=== PATIENT | female | born 1930 | race Caucasian/White ===

== ENCOUNTER 2016-05-09 09:53 | Inpatient (IN) | payer MEDICARE ==
[~2016-05-09] VITALS: Ht 162.6 cm; Wt 62.9 kg
[2016-05-09 12:03] LABS: APPEARANCE HAZY (CLEAR); BILIRUBIN NEGATIVE (NEGATIVE); COLOR YELLOW (YELLOW); GLUCOSE NEGATIVE (NEGATIVE); KETONE NEGATIVE (NEGATIVE); LEUKOCYTE ESTERASE NEGATIVE (NEGATIVE); NITRITE NEGATIVE (NEGATIVE); PROTEIN NEGATIVE (NEGATIVE); SPECIFIC GRAVITY 1.025 (1.005-1.020); UROBILINOGEN NORMAL (NORMAL)
[2016-05-09 12:05] LABS: BACTERIA MODERATE /hpf (NONE SEEN); EPITHELIAL CELLS 0-5 /hpf (0-5); MUCUS <1+ /lpf (NONE SEEN); RED CELLS - URINE 0-5 /hpf (0-5); WHITE CELLS - URINE 0-5 /hpf (0-5)
[2016-05-09 12:40] LABS: BASOPHILS 0.1 % (0.0-2.0); EOSINOPHILS 0 % (0-7); HEMATOCRIT 38.9 % (36.0-48.0); HEMOGLOBIN 11.3 g/dL (12-16); IMMATURE GRANULOCYTES 0.2 % (0-5); LYMPHOCYTES 9.2 % (15-50); MCH 27.8 pg (26.0-34.0); MCV 95.8 fL (80.0-100.0); MEAN PLATELET VOLUME 10.6 fL (7.4-10.4); MONOCYTES 6.5 % (2-11); PLATELET COUNT 277 10x3/uL (130-400); RBC 4.06 10x6/uL (4.00-5.40); RDW 14.9 % (11.5-14.5); WBC 11.5 10x3/uL (4.8-10.8)
[2016-05-09 12:46] LABS: ALBUMIN 2.2 g/dL (3.4-5.0); ANION GAP 14.8 mmol/L (8-16); BILIRUBIN - TOTAL 0.32 mg/dL (0.2-1.3); CALCIUM 9.8 mg/dL (8.5-10.1); CARBON DIOXIDE 36.8 mmol/L (21.0-32.0); CREATININE - SERUM 1.9 mg/dL (0.6-1.3); POTASSIUM - SERUM 5.6 mmol/L (3.5-5.1)
[2016-05-09 13:00] LABS: TROPONIN-I 0.25 ng/mL (0.000-0.060)
[2016-05-09 15:55] VITALS: BP 133/75; BMI 22.5
--- NOTE | 2016-05-09 16:10 | NUR ---
1535- PT TO ROOM VIA STRETCHER FROM ED. [facility] CATH INTACT. ON 02 AT 2L. SALINE LOCK TO RIGHT HAND. SKIN ASSESSMENT FOLLOWS. SCAB SEEN TO INNER LEFT ABOVE ANLKE, MEASUREMENTS 5CM X 1CM WITH DRY, SCALY SKIN. SCAB SEEN TO RIGHT INNER ANKLE. MEASUREMENTS ARE 3.5CM X 1CM WITH DRY, SCALY SKIN. MULTLIPLE (5) SCABS SEEN TO RIGHT OUTER LEG. SKIN IS RED, DRY, HARD, AND SCALY THATS COLD TO TOUCH. BILATERAL FOREARMS HAVE REDDENED AREA WITH SKIN TEAR THAT APPEARS TO BE HEALING. BELOW FOURTH DIGIT OF LEFT FOOT SMALL SCAB SEEN WITH MEASUREMENTS OF 0.5CM X 0.5CM. BRUISING SEEN TO LEFT GREAT TOE AREA. SMALL SCAB SEEN TO RIGHT GREAT TOE AREA WITH MEASUREMENTS OF 0.5CM X 0.5CM. SMALL SCAB SEEN TO RIGHT OUTER PINKY AREA WITH MEASUREMENTS OF 0.5CM X 0.5CM. EXCORIATION SEEN TO BUTTOCK AREA WITH SCRATCHES, MEPELIX SACCRUM APPLIED AND DATED. WOUND CARE NURSE IS AT BEDSIDE WHILE ASSESSING SKIN.
[2016-05-09 16:43] VITALS: BP 133/75
[2016-05-09 18:42] LABS: % SATURATION 7 % (15-55); IRON 20 ug/dl (35-150); TOTAL IRON BIND CAPACITY 279 ug/dl (260-445); UNSAT IRON BIND CAPACITY 259 ug/dl (150-375)
--- NOTE | 2016-05-09 18:52 | NUR ---
PT LAYING IN BED VISITING WITH FAMILY MEMBERS WHO ARE AT BEDSIDE. NO NEED AT THIS TIME. WILL CONTINUE TO MONITOR.
--- NOTE | 2016-05-09 18:58 | NUR ---
ON MONITOR SHOWING SR, HR 86.
[2016-05-09 21:00] VITALS: BP 117/47
[2016-05-10 00:42] VITALS: BP 116/49
--- NOTE | 2016-05-10 04:59 | NUR ---
PT RESTING WITHOUT C/O OR DISTRESS NOTED. CALL LIGHT WITHIN REACH. WILL CONT TO MONITOR.
--- NOTE | 2016-05-10 07:05 | NUR ---
RECEIVED REPORT. ASSUMED CARE OF PATIENT. CALL LIGHT WITHIN REACH. RESP EVEN AND UNLABORED. NO DISTRESS. DENIES PAIN.
[2016-05-10 07:18] VITALS: BP 154/73
[2016-05-10 07:26] VITALS: BP 154/73
[2016-05-10 07:26] LABS: BASOPHILS 0 % (0.0-2.0); EOSINOPHILS 0.6 % (0-7); HEMATOCRIT 37.9 % (36.0-48.0); HEMOGLOBIN 11.1 g/dL (12-16); IMMATURE GRANULOCYTES 0.1 % (0-5); LYMPHOCYTES 12.2 % (15-50); MCH 27.9 pg (26.0-34.0); MCHC 29.3 g/dL (31.0-37.0); MCV 95.2 fL (80.0-100.0); MEAN PLATELET VOLUME 10.4 fL (7.4-10.4); MONOCYTES 7.1 % (2-11); PLATELET COUNT 278 10x3/uL (130-400); RBC 3.98 10x6/uL (4.00-5.40)
[2016-05-10 07:34] LABS: CALCIUM 8.7 mg/dL (8.5-10.1)
[2016-05-10 07:35] LABS: ANION GAP 2.2 mmol/L (8-16); CREATININE - SERUM 1.2 mg/dL (0.6-1.3)
[2016-05-10 07:36] LABS: CARBON DIOXIDE 43.5 mmol/L (21.0-32.0); POTASSIUM - SERUM 2.7 mmol/L (3.5-5.1)
--- NOTE | 2016-05-10 10:05 | NUR ---
K+ RIDER # 2 HUNG AT THIS TIME. FAMILY AT BEDSIDE. ULTRASOUND AT BEDSIDE. NO DISTRESS. CALL LIGHT WITHIN REACH.
[2016-05-10 11:30] VITALS: BP 123/55
[2016-05-10 13:06] VITALS: Ht 162.6 cm; Wt 62.9 kg
[2016-05-10 15:21] VITALS: BP 117/48
[2016-05-10 15:32] LABS: CALCIUM 8.8 mg/dL (8.5-10.1); CREATININE - SERUM 1.2 mg/dL (0.6-1.3)
[2016-05-10 15:41] LABS: ANION GAP 1.6 mmol/L (8-16); POTASSIUM - SERUM 4.2 mmol/L (3.5-5.1)
[2016-05-10 15:42] LABS: CARBON DIOXIDE 43.6 mmol/L (21.0-32.0)
--- NOTE | 2016-05-10 18:34 | NUR ---
MEDICATED FOR CHEST PAIN AT THIS TIME PER 1 TIME ORDER FROM . DR. MORAELZ PAGED FOR FUTURE ORDERS. PATIENT STATES CHEST PAIN IS BETTER. FAMILY AT BEDSIDE. CALL LIGHT WITHIN REACH. VS STABLE. SR ON TELE.
--- NOTE | 2016-05-10 19:10 | NUR ---
SPOKE TO AND RECEIVED NEW ORDERS FOR PLAVIX AND PRN MORPHINE. FAMILY AT BEDSIDE AT THIS TIME. PATIENT REMAIN SR ON TELE. NO CHEST PAIN AT THIS TIME.
--- NOTE | 2016-05-10 20:28 | NUR ---
RESTING IN BED. PREVIOUSLY GIVEN MORPHINE BY DAY SHIFT STAFF. OBTUNDED, VITAL SIGNS STABLE RESPONDS APPROPRIATELY TO STERNAL RUB. UNABLE TO TAKE PO MEDICATIONS AT THIS TIME. FAMILY STATED THAT IF SHE WAKES UP THEY WILL INFORM STAFF SO THAT SHE CAN TAKE CLOPIDOGREL
[2016-05-10 20:30] VITALS: BP 119/52
[2016-05-11 00:10] VITALS: BP 119/44
--- NOTE | 2016-05-11 02:22 | NUR ---
PT AROUSES TO VERBAL STIMULI. ANSWERS QUESTIONS APPROPRIATELY, LETHARGIC. SLOW TO RESPOND. ATTEMPTED TO ADMINISTER PLAVIX AGAIN. PT STATED THAT SHE WOULD TRY TO TAKE TABLET. UNABLE TO OPEN MOUTH ENOUGH TO PLACE TABLET. NODICATION NOT ADMINISTERED FOR FEAR OF ASPIRATION/CHOCKING HAZARD
--- NOTE | 2016-05-11 02:25 | NUR ---
PT LAYING IN BED NO DISTRESS OBSERVED BED LOW AND LOCKED CALL LIGHT IN REACH WILL MONITOR
[2016-05-11 04:20] VITALS: BP 126/52
--- NOTE | 2016-05-11 06:30 | NUR ---
DISCUSSED WITH PT AND FAMILY MEMBER AT [facility] ABOUT BEING NPO FOR POSSIBLE HEART CATH PENDING DISCUSSION WITH DR MORALEZ, EXPLAINED THAT MORNING PROTONIX WOULD BE HELD
--- NOTE | 2016-05-11 07:00 | NUR ---
RECEIVED REPORT. ASSUMED CARE OF PATIENT. RESTING WITH EYES CLOSED, EASILY AROUSED. RESP EVEN AND UNLABORED. FAMILY AT BEDSIDE. DENIES CHEST PAIN AT THIS TIME. FLUIDS INFUSING ORDERED. CALL LIGHT WITHIN REACH. NO DISTRESS.
[2016-05-11 07:35] VITALS: BP 122/53
[2016-05-11 08:00] VITALS: BP 89/36
[2016-05-11 08:54] LABS: BASOPHILS 0.1 % (0.0-2.0); EOSINOPHILS 0.8 % (0-7); HEMATOCRIT 39.3 % (36.0-48.0); HEMOGLOBIN 11.2 g/dL (12-16); IMMATURE GRANULOCYTES 0.1 % (0-5); MCH 27.8 pg (26.0-34.0); MCHC 28.5 g/dL (31.0-37.0); MEAN PLATELET VOLUME 10.7 fL (7.4-10.4); PLATELET COUNT 225 10x3/uL (130-400); RBC 4.03 10x6/uL (4.00-5.40); WBC 9.2 10x3/uL (4.8-10.8)
[2016-05-11 09:05] LABS: MCV 97.5 fL (80.0-100.0)
[2016-05-11 09:13] LABS: CALCIUM 9.4 mg/dL (8.5-10.1); CARBON DIOXIDE 39.3 mmol/L (21.0-32.0); CREATININE - SERUM 1.3 mg/dL (0.6-1.3); POTASSIUM - SERUM 4.3 mmol/L (3.5-5.1)
--- NOTE | 2016-05-11 10:41 | NUR ---
CONTINUING TO WAIT ON MUCOMYST ORAL FROM PHARMACY.
--- NOTE | 2016-05-11 10:46 | NUR ---
PATIENT PLACED IN TEMPORARY PRECAUTIONARY ISOLATION FOR STAFF AUREUS TO WOUNDS ON LEGS THAT WERE CULTURED. 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
[2016-05-11 11:20] VITALS: BP 101/49
--- NOTE | 2016-05-11 12:30 | NUR ---
MEDICATED LOTION APPLIED ORDERED TO BILATERAL LOWER EXTREMITIES. NO DISTRESS. FAMILY AT BEDSIDE.
[2016-05-11 15:28] VITALS: BP 105/42
--- NOTE | 2016-05-11 15:30 | NUR ---
RESTING IN BED WITH EYE CLOSED. EASILY AROUSED. RESP EVEN AND UNLABORED. NO DISTRESS. CALL LIGHT WITHIN REACH.
--- NOTE | 2016-05-11 18:38 | NUR ---
PATIENT SITTING IN BED AT 30 DEGREE ANGLE. GRAND DAUGHTER AT BEDSIDE. PATIENT GRAND DAUGHTER STATES THAT PATIENT IS COMPLAINING OF HAVING HARD TIME BREATHING. PATIENT ASSESSED, RESP EVEN AND UNLABORED, RATE 18, O2 SATURATION 94% ON O2 AT 2L. PATIENT DENIES CHEST PAIN OR DISCOMFORT. NO NASAL FLARRING, CAPILLARY REFIL <3 SECS. SAT PATIENT UP IN BED AND PATIENT STATES THAT SHE FEELS BETTER. GRAND DAUGHTER REMAINS AT BEDSIDE.
--- NOTE | 2016-05-11 19:32 | NUR ---
MORPHINE 2MG IV ADM AT THIS TIME RT WRIST IV SITE WITH NO R/S NOTED AT SITE GRANDDAUGHTER AT BEDSIDE FOR NIGHT. C/L IN REACH. IN ISOLATION FOR POSIBLE CDIFF. CONTINUE TO MONITOR.
[2016-05-12 06:21] LABS: BASOPHILS 0 % (0.0-2.0); EOSINOPHILS 3.1 % (0-7); HEMATOCRIT 35.9 % (36.0-48.0); HEMOGLOBIN 10.4 g/dL (12-16); IMMATURE GRANULOCYTES 0.2 % (0-5); LYMPHOCYTES 17.4 % (15-50); MCH 27.8 pg (26.0-34.0); MEAN PLATELET VOLUME 11.1 fL (7.4-10.4); MONOCYTES 10.4 % (2-11); NEUTROPHILS 68.9 % (40-80); PLATELET COUNT 219 10x3/uL (130-400); RBC 3.74 10x6/uL (4.00-5.40); RDW 14.5 % (11.5-14.5)
[2016-05-12 06:53] LABS: ANION GAP 7.8 mmol/L (8-16); CARBON DIOXIDE 36.7 mmol/L (21.0-32.0); CREATININE - SERUM 1.2 mg/dL (0.6-1.3); POTASSIUM - SERUM 4.5 mmol/L (3.5-5.1)
--- NOTE | 2016-05-12 07:30 | NUR ---
AM ROUNDING- PT LAYING IN BED ON BACK WITH EYES CLOSED SLEEPING. FAMILY MEMBER AT BEDSIDE. ON MONITOR SHOWING SR, HR 69. IN CONTACT ISOLATION FOR FOR C.DIFF. NO IV AT CURRENT TIME. PER REPORT FROM DANCE THERAPIST NURSE SHAMIKA, PTS IV CAME OUT THIS AM AND THEY COULDN'T STICK HER AGAIN. MOONEY CATHETER SEEN WITH YELLOW URINE. PER REPORT FROM SHAMIKA, RN PT IS ALERT AND ORIENTED BUT CONFUSED AT TIMES. ON 02 VIA NC AT 2L. NO NEED AT CURRENT TIME. WILL CONTINUE TO MONITOR.
[2016-05-12 08:45] VITALS: BP 127/55
--- NOTE | 2016-05-12 10:12 | NUR ---
0900- MILI CHAVEZ RN (VASCULAR ACCESS NURSE) STUCK PTS TWICE WITH TWO ATTEMPTS AT IV ACCESS. MILI WAS UNSUCCESSFUL. STATED SHE WOULD BE BACK TO TRY AGAIN. 0945- MILI CHAVEZ RN (VASCULAR ACCESS NURSE) STUCK PT WITH 22G TO RIGHT UPPER ARM X 1 STICK. TOLERATED WELL. WILL CONTINUE TO MONITOR.
--- NOTE | 2016-05-12 10:46 | NUR ---
Patient Name: LENA MOJICA Admission Status: ER Accout number: [id number] Admission Date: 05-09-2016 : 1930 Admission Diagnosis: Attending: SARAH Current LOS: 3 Anticipated DC Date: 05-12-2016 Planned Disposition: Home Primary Insurance: MEDICARE A & B Discharge Planning Comments: * Is the patient Alert and Oriented? Yes 0 * How many steps to enter\\exit or inside your home? 5 0 * PCP DR. TORRES - VIKTORIA HARDWICK 0 * Pharmacy [facility] 0 * Preadmission Environment Home Alone 0 * ADLs Partial Dependent 0 * Partial ADLs (Assistance needed) Bathing 0 * Equipment Other Walker 0 * Other Equipment [facility] - MEDICAL EQUIPMENT PROVIDER 0 * List name and contact numbers for known caregivers / representatives who currently or will assist patient after discharge: DANUTA MADSEN, DAUGHTER, 0 * Community resources currently utilized Meals on Wheels Other Private Duty Care 0 * Please name any agencies selected above. [employer], 1 DAY PER WEEK, 3 HOURS PER DAY (BATH, HOUSEKEEPING) [facility] 0 * Additional services required to return to the preadmission environment? Yes * Can the patient safely return to the preadmission environment? Yes 0 * Has this patient been hospitalized within the prior 30 days at any hospital? No 0 CM MET WITH PT, DAUGHTER AND DAUGHTER IN LAW IN ROOM TO DISCUSS DISCHARGE PLANNING AND NEEDS. PT'S DAUGHTER REPORTS PT LIVING AT HOME ALONE AND PARTIALLY DEPENDENT ON HER AIDE FROM ARE[employer] THAT ASSISTS WITH BATHING AND HOUSEKEEPING TIME ALLOWS. FAMILY IS "IN AND OUT" OF THE HOME FREQUENTLY TO CHECK ON PT. PT IS OTHERWISE INDEPENDENT IN CARE, DOES NOT USE STOVE TO COOK, BUT DOES USE HER MICROWAVE OVEN. PT HAS HOUSECALLS ALSO. PT IS NOT VERY COMPLIANT WITH HER MEDICATIONS AND FAMILY IS TRYING TO GET PT TO BE MORE COMPLAINT. CM DISCUSSED AVAILABILITY OF HOME HEALTH, REHAB SERVICES AND MEDICAL EQUIPMENT. PT WILL NOT CONSIDER GOING TO LONG TERM HOME FOR REHAB OR OTHER PLACEMENTS. PT'S DAUGTHER WOULD LIKE PT TO HAVE HOME HEALTH WITH [facility] AT DISCHARGE FOR PHYSICAL THERAPY. CM EXPRESSED CONCERN THAT PT IS NOT BED MOBILE ON HER OWN AND PT WELL FAMILY CONTINUE TO REPORT PT IS GOING HOME. PT'S DAUGTHER REPORTS THAT PT WILL GET BETTER AND THEN GO HOME WITH HOME HEALTH. DAUGHTER REPORTS FAMILY WILL PICK PT UP FOR DISCHARGE HOME. PT'S FAMILY WOULD LIKE PT TO HAVE [facility] HOME HEALTH FOR PHYSICAL THERAPY AT HOME. CM TO ARRANGE HOME HEALTH SERVICES IF PHYSICIAN AGREES AND WITH PHYSICIAN ORDERS. Senior Production Supervisor: Duke Hernadez
--- NOTE | 2016-05-12 12:49 | NUR ---
1050- PT UP TO CHAIR WITH PHYSICAL THERAPY.
[2016-05-12 13:14] VITALS: BP 101/45
--- NOTE | 2016-05-12 14:56 | NUR ---
Rehab Prescreening Consult recieved and the chart has been reviewed. His PT notes indicate he is weak and SOB while out of bed. Rehab needs a more thorough note from physical therapy to determine what his deficits are and whether or not he will be able to tolerate 3 hrs of therapy daily 5 days a week. Rehab will follow his progress as he has not PT note today. Sari Marsh RN Clinical Liaison, Rehab
--- NOTE | 2016-05-12 15:38 | NUR ---
MEPELIX CHANGED TO COCCYX AREA AND DATED. DISCOLORATION (BRUISE)?, SEEN TO THIS AREA. THIS WAS NOT OBSERVED ON THURSDAY DURING MY ADMISSION. WILL CONTINUE TO MONITOR.
--- NOTE | 2016-05-12 16:26 | NUR ---
WOUND CARE; APPLIED BILATERAL UNNA BOOTS PER DR. WILEY'S ORDERS. INSTRUCTED PT/FAMILY ON PURPOSE OF COMPRESSION BOOTS. SPOKE WITH PHYSICAL THERAPY ABOUT ADDING ANKLE PUMPS (POINT AND FLEX). PT TOLERATED WELL. WILL CONTINUE TO MONITOR.
[2016-05-12 17:04] VITALS: BP 106/44
--- NOTE | 2016-05-12 18:16 | NUR ---
PT LAYING IN BED ON BACK WITH EYES OPEN. FAMILY MEMBERS ARE AT BEDSIDE. NO NEED AT CURRENT TIME. WILL CONTINUE TO MONITOR.
[2016-05-12 19:09] LABS: SPE - ALBUMIN 2.4 g/dL (2.9-4.4); SPE - ALPHA-1 GLOBULIN 0.3 g/dL (0.0-0.4); SPE - ALPHA-2 GLOBULIN 0.8 g/dL (0.4-1.0); SPE - BETA GLOBULIN 0.8 g/dL (0.7-1.3); SPE - GAMMA GLOBULIN 0.5 g/dL (0.4-1.8); SPE - M-SPIKE Not Observed g/dL (Not Observed); SPE - TOTAL PROTEIN 4.9 g/dL (6.0-8.5)
--- NOTE | 2016-05-12 20:37 | NUR ---
PT LYING IN BED, AWAKE, ALERT, ORIENTED, FAMILY AT BEDSIDE. PT IS PAIUTE-SHOSHONE, BUT DENIES ANY NEEDS AT THIS TIME. CONTINUE TO MONITOR CLOSELY. BED LOW, HOB 30 DEGREES, RIGHT ARM ELEVATED ON PILLOW R/T EDEMA, SIDE RAILS X 2, BED ALARM ON.
[2016-05-12 21:47] VITALS: BP 83/36
--- NOTE | 2016-05-13 01:41 | NUR ---
DURING MED PASS THIS SHIFT, PT DEMONSTRATED DIFFICULTY WITH FOLLOWING SIMPLE COMMANDS, SWALLOWING HER MEDICATIONS, AND SIPPING FROM A STRAW. PT IS VERY CHEFORNAK, AND THIS MAY HAVE CONTRIBUTED TO HER NOT BEING ABLE TO FOLLOW DIRECTIONS. FAMILY (DAUGHTER IN LAW) AT BEDSIDE STATES SHE HAS NOT DEMONSTRATED DIFFICULTY TO THIS DEGREE. I PAGED EDUARDO ROBLERO APN WELL DRILLER FOR [facility] WHO ORDERED A BEDSIDE SWALLOW EVAL. WE ALSO DISCUSSED HOLDING PTS IV FLUIDS, PT IS HAVING EXCESSIVE BILATERAL ARM EDEMA. PTS PIV IN RIGHT UPPER ARM HAS INFILTRATED, CAUSING REDNESS, SWELLING, WARM TO TOUCH, AND SKIN SLOUGHING. BOTH ARMS ARE ELEVATED ON PILLOWS ARE BOTH LEGS. LEGS ARE CURRENTLY WRAPPED FROM WOUND CARE NURSES' TX FROM DAY SHIFT. PT MOANS AND GRIMACES INTERMITTENTLY, BUT CANNOT STATE WHAT IS CAUSING HER TO DO THAT. WILL CONTINUE TO MONITOR CLOSELY.
[2016-05-13 02:11] VITALS: BP 107/50
--- NOTE | 2016-05-13 02:15 | NUR ---
PTS DAUGHTER IN LAW HAS CALLED ME SEVERAL TIMES R/T PT BEING RESTLESS AND MOANING OUT IN PAIN. I HAVE EXPLAINED THAT PT NO LONGER HAS IV ACCESS, THEREFOR CANNOT RECEIVE ANY MORE MORPHINE AT THIS TIME, AND THAT THE MORPHINE IS RESERVED SOLEY FOR CHEST PAIN, IN WHICH PT DENIES HAVING. WHEN ASKING PT WHERE HER PAIN IS LOCATED, PT IS UNABLE TO ANSWER, PT IS UNABLE TO COMMUNICATE ANY NEEDS AT THIS POINT. WHEN PT IS ASKED A QUESTION, PT IS UNABLE TO ANSWER, JUST LOOKING AT ME WITH A BLANK EXPRESSION. I HAVE WITNESSED THE DAUGHTER IN LAW COACHING PT TO ASK FOR PAIN MEDICATION, AND INSISTING THAT PT IS SUFFERING, THAT THE PRN TYLENOL GIVEN IS NOT HELPING. AT THIS POINT, IT IS VERY DIFFICULT TO DETERMINE IF PT IS ACUTELY IN PAIN, OR IF THIS A CHRONIC PAIN ISSUE. WILL CONTINUE TO MONITOR.
--- NOTE | 2016-05-13 02:22 | NUR ---
I HAVE ASKED DAUGHTER IN LAW, WHO STATES THAT SHE LIVES RIGHT NEXT DOOR TO PT, AND IS CONSTANTLY WITH HER, WHAT HER HOME MEDICATIONS ARE SO THAT WE MAY GATHER BETTER INFORMATION. THE DAUGHTER IN LAW STATED THAT SHE DOES NOT KNOW ALL THAT THE PATIENT TAKES, AND THAT PATIENT IS NONCOMPLIANT WITH TAKING HER DIURETIC. CONTINUE TO MONITOR CLOSELY.
--- NOTE | 2016-05-13 03:47 | NUR ---
PT WAS LYING IN BED, SCREAMING, WRITHING, C/O PAIN. PT WAS GRASPING HER CHEST, BUT UNABLE TO TELL ME WHERE THE PAIN IS LOCATED. I CALLED TO ASK AN ICU NURSE TO HELP WITH RESITING PTS IV SINCE HER PIC IN RIGHT UPPER ARM HAS INFILTRATED, AND BOTH ARMS EXTREMELY EDEMATOUS. SUYAPA RN WITH ICU WAS ABLE TO PLACE A 22 GAUGE IN HER RIGHT HAND. I DID GIVE PT PRN MORPHINE FOR CHEST PAIN SINCE SHE WAS GRASPING AT HER CHEST, IN WHICH PT DID IMMEDIATELY CALM DOWN AND IS ABLE TO SLEEP AT THIS TIME. PTS DAUGHTER IN LAW STATED THAT PT HAS NOT SLEPT IN ALMOST 2 DAYS. WILL CONTINUE TO MONITOR PT CLOSELY.
[2016-05-13 05:29] VITALS: BP 104/36
[2016-05-13 06:06] LABS: BASOPHILS 0 % (0.0-2.0); EOSINOPHILS 3.4 % (0-7); HEMATOCRIT 31.7 % (36.0-48.0); HEMOGLOBIN 9.4 g/dL (12-16); IMMATURE GRANULOCYTES 0.1 % (0-5); LYMPHOCYTES 9.2 % (15-50); MCH 27.7 pg (26.0-34.0); MCHC 29.7 g/dL (31.0-37.0); MEAN PLATELET VOLUME 10.8 fL (7.4-10.4); MONOCYTES 6.5 % (2-11); NEUTROPHILS 80.8 % (40-80); PLATELET COUNT 236 10x3/uL (130-400); RBC 3.39 10x6/uL (4.00-5.40); RDW 14.3 % (11.5-14.5)
--- NOTE | 2016-05-13 06:09 | NUR ---
PT FINALLY RESTING COMFORTABLY, AWAKE, AND ALERT, DAUGHTER IN LAW AT BEDSIDE. CONTINUE TO MONITOR CLOSELY. BED LOW, CALL LIGHT IN REACH, SIDE RAILS X 2, HOB 20 DEGREES, BED ALARM ON.
[2016-05-13 06:13] LABS: FOLATE (FOLIC ACID) - SERUM 8.7 ng/mL (>3.0)
[2016-05-13 06:15] LABS: MCV 93.5 fL (80.0-100.0)
[2016-05-13 06:26] LABS: ANION GAP 7.9 mmol/L (8-16); CREATININE - SERUM 1.2 mg/dL (0.6-1.3); POTASSIUM - SERUM 4.9 mmol/L (3.5-5.1)
--- NOTE | 2016-05-13 07:48 | NUR ---
AM ROUNDING- PT LAYING IN BED ON BACK WITH EYES OPEN. FAMILY MEMBER ([id number]) AT BEDSIDE. DRESSING SEEN TO BILATERAL LEGS, CLEAN, DRY, AND INTACT. SWELLING AND REDNESS SEEN TO RIGHT UPPER ARM WHERE IV INFILTRATED ON SHOE POLISHER PER REPORT FROM SALLY PALACIO. IV SEEN TO RIGHT HAND, SALINE LOCKED AND PATENT. PT IS HAVING HARD TIME SWALLOWING MEDICINE PER REPORT. SWALLOW STUDY HAS BEEN ORDERED BY OSBALDO CLARK NP PER REPORT FROM SHOE POLISHER NURSE HAKEEM. IV FLUIDS ARE CURRENTLY BEING HELD. ON 02 AT 2L VIA NC. MOONEY SEEN WITH YELLOW URINE. MEPELIX TO BOTTOM SEEN. ON LOVENOX FOR DVT PREVENTION. ON MONITOR SHOWING SR, HR 82. WILL CONTINUE TO MONITOR.
--- NOTE | 2016-05-13 07:55 | NUR ---
PAGEOSBALDO KAYE, RESIDENTIAL MANAGER TO ASK IF WE COULD MAYBE GET ORDERS FOR A MIDLINE CATHETER OR PICC LINE FOR IV ACCESS. PER FAMILY REQUEST, WAS GOING TO ALSO ASK EDUARDO IF WE COULD GET ORDERS FOR UPDRAFTS/BREATHING TREATMENT. AWAITING CALLBACK.
[2016-05-13 08:56] VITALS: BP 110/50
--- NOTE | 2016-05-13 10:08 | NUR ---
0850- WENT INTO PTS ROOM BECAUSE PT IS VERY LETHARGIC AND SLOW TO RESPOND. PT 02 SAT WAS 77%. CALLED [facility], HARRY FROM [facility] CAME UP AND GAVE PT BREATHING TX AND PLACED ON OXIMIZER AT 4L. PT 02 SAT WAS THEN 99%. 09- CALLED BACK INTO PTS ROOM WITH O2 SAT AT 75%. TURNED OXIMIZER UP TO 5L. HARRY FROM [facility] WAS CALLED AGAIN AND SAT WENT UP TO 99%. EDUARDO ROBLERO NP WAS CALLED AND RECEIVED ORDERS FOR 20MG OF LAXIS IV AND FOR PT TO HAVE A CHEST XRAY. 09- GER STARR WAS CALLED TO BE INFORMED OF THIS. XRAY IS NOW IN ROOM DOING CHEST X-RAY. 0915- HARRY FROM [facility] IS IN ROOM AND STATES PTS 02 SAT IS 99% WILL CONTINUE TO MONITOR.
--- NOTE | 2016-05-13 10:08 | NUR ---
1004- VASCULAR ACCESS NURSE, MILI CHAVEZ WAS UNABLE TO GET A MIDLINE CATHETER IN PT. ELHAM CLARK TO INFORM HER OF THIS AND TO ALSO GET ORDERS FOR DNR PER FAMILY REQUEST. AWAITING CALLBACK.
--- NOTE | 2016-05-13 10:17 | NUR ---
OSBALDO CLARK SUPERVISOR CARTOGRAPHY ON UNIT. I TALKED TO HER ABOUT SITUATION. AWAITING NEW ORDERS.
--- NOTE | 2016-05-13 10:35 | NUR ---
SPOKE WITH FAMILY ABOUT RESUSCITATION MEASURES. FAMILY(DAUGHTER AND SON) STATES PATIENT DOES NOT WANT ANY RESUSCITATION MEASURES. SPOKE WITH RENÉE Dobbs COMMODITIES TRADER AND DNR ORDER RECEIVED.
--- NOTE | 2016-05-13 10:37 | NUR ---
Reassessment of bilateral boots to insure they are still fitting properly. Able to easily slide 2 fingers around openings at knee and at toes. Knees and toes remain warm to the touch and have no discoloration. Pt has no c/o of increased pain and no increased edema is noted. Will continue monitoring.
--- NOTE | 2016-05-13 10:38 | NUR ---
SPOKE WITH EDUARDO ROBLERO NP THAT IS ON UNIT. INFORMED HER OF FAMILYS REQUEST FOR DNR, SHE STATED CARMEN CALDWELL, WHEEL MOLDER IS PUTTING IN ORDERS FOR THAT NOW. ALSO INFORMED HER THAT I HAVE NOT GAVE PT HER PO ORDERED MEDS DUE TO PT BEING SO LETHARGIC AND UNABLE TO SWALLOW ANYTHING AT THIS TIME. WILL CONTINUE TO MONITOR.
[2016-05-13 11:59] VITALS: BP 110/38
--- NOTE | 2016-05-13 12:49 | NUR ---
FAMILY MEMBERS ARE STATING PT IS YELLING OUT IN PAIN. EDUARDO ROBLERO NP CAME INTO ROOM. STATED SHE WOULD HAVE TO CALL THE DOCTOR BEFORE GIVING HER ANY PAIN MEDICINE TO SEE WHAT WE NEED TO GIVE. WILL CONTINUE TO MONITOR.
--- NOTE | 2016-05-13 12:52 | NUR ---
Rehab Note- Spoke with Physical Therapy- Aly, stated patient is on hold today due to respiratory issues. The patient was moaning out while present with being pulled up in bed at total A x2. Will continue to follow the patient at this time. Mely Helm RN Clinical Liaison, Rehab Care/[place]
--- NOTE | 2016-05-13 14:10 | NUR ---
HARRY FROM RESPIRATORY CAME TO INFORM ME THAT SHE TURNED PTS OXIMIZER UP TO 10L BECAUSE HER 02 SAT WAS LOW. WILL CONTINUE TO MONITOR.
--- NOTE | 2016-05-13 14:16 | NUR ---
Nutrition follow-up: Visited with pts family memeber during RDN rounds. Pt sleeping at this time. Menu filled out with pts food preferences per family memeber. Pts po intake ~50% of meals; however, pt has not eaten much today due to lethargy. Labs reviewed Will continue to provide food choices and honor food preferences. RDN will change diet order to chopped meats due to pt with no teeth. RDN following.
--- NOTE | 2016-05-13 15:09 | NUR ---
ASKED SALLY CHENROD MACHINE OPERATOR NURSE IF WE CAN GET SOME CALMOSEPTINE OINTMENT FOR PTS BUTTOCK AREA. GUSTAVO STATED SHE WOULD ORDER IT.
[2016-05-13] MEDS ORDERED: FUROSEMIDE20 MG PO (15:45)
[2016-05-13] MEDS ORDERED: CLARITIN 10 MG10 MG PO (15:46)
[2016-05-13] MEDS ORDERED: COMBIVENT RESPIM4 GM INH (15:50)
[2016-05-13] MEDS ORDERED: PROVENTIL/2.5 MG/3 M INH (15:52)
[2016-05-13 16:13] VITALS: BP 109/93
--- NOTE | 2016-05-13 17:36 | NUR ---
Patient Name: LENA MOJICA Encounter No: [id number] : 1930 Primary Insurance: MEDICARE A & B Anticipated DC Date: 05-12-2016 Planned Disposition: POSSIBLE HOSPICE External Planned Provider: FAMILY CONSIDERING OPTIONS DCP follow-up note: CM MET WITH PT AND FAMILY IN ROOM. PT'S DAUGHTER REPORTS PT IS DOING MUCH WORSE AND THEY ARE CONSIDERING HOSPICE FOR PT AT HOME. CM ANSWERED FAMILY QUESTIONS REGARDING HOSPICE SERVICES. PT'S DAUGHTER REPORTS THEY WILL CONTINUE TO TALK ABOUT THIS A FAMILY AND PT'S SON WILL BE IN ROOM WITH PT TOMORROW AND FAMILY MAY HAVE DECISION REGARDING HOSPICE TOMORROW. CM ENSURED FAMILY HAD CM CONTACT INFORMATION, OFFERED TO HELP NEEDED. FAMILY CONSIDERING HOSPICE PER DAUGHTER, CM TO FOLLOW AND ASSIST NEEDED. Duke Hernadez, CASE MANAGEMENT
--- NOTE | 2016-05-13 18:38 | NUR ---
PT LAYING IN BED ON BACK WITH EYES OPEN. PT IS VERY LETHARGIC. FAMILY MEMBER ([id number]) IS AT BEDSIDE. NO NEED AT CURRENT TIME. WILL CONTINUE TO MONITOR.
[2016-05-13 20:03] VITALS: BP 124/71
--- NOTE | 2016-05-13 23:45 | NUR ---
PT LAYING IN BED FAMILY IN ROOM AT BEDSIDE CALL LIGHT IN REACH BED LOW AND LOCKED SRX2 WILL MONITOR
[2016-05-14 00:14] VITALS: BP 121/53
--- NOTE | 2016-05-14 01:49 | NUR ---
1MG MORPHINE ADMIN TO PT IVP FOR PAIN AND DISCOMFORT ORDERED SKIN GRADER IN ROOM AT THIS TIME COMPELTEING BED BATH AND COMPLETE LINEN CHANGE WILL MONITOR
[2016-05-14 05:07] VITALS: BP 129/70
--- NOTE | 2016-05-14 05:53 | NUR ---
PATIENT IS STILL NOT BEING RESPONSIVE EXCEPT TO PAIN. ANY TIME SHE IS TOUCHED SHE SCREAMS SOME. 1MG MORPHINE GIVEN TWICE LAST NIGHT. DAUGHTER STAYED AT BEDSIDE THOUGHOUT THE NIGHT. SHE WAS INCONT LAST NIGHT ONCE. NO NEEDS WERE NOTED BY THE FAMILY MEMBERS OF THE PATIENT.
[2016-05-14 05:54] LABS: BASOPHILS 0.4 % (0.0-2.0); EOSINOPHILS 5.9 % (0-7); HEMATOCRIT 31.2 % (36.0-48.0); HEMOGLOBIN 9.4 g/dL (12-16); IMMATURE GRANULOCYTES 0.1 % (0-5); LYMPHOCYTES 10.6 % (15-50); MCH 27.7 pg (26.0-34.0); MCHC 30.1 g/dL (31.0-37.0); MEAN PLATELET VOLUME 10.8 fL (7.4-10.4); MONOCYTES 8.4 % (2-11); NEUTROPHILS 74.6 % (40-80); RBC 3.39 10x6/uL (4.00-5.40); RDW 14.6 % (11.5-14.5); WBC 8.5 10x3/uL (4.8-10.8)
[2016-05-14 05:58] LABS: PLATELET COUNT 293 10x3/uL (130-400)
[2016-05-14 06:18] LABS: ANION GAP 6.4 mmol/L (8-16); CALCIUM 8.7 mg/dL (8.5-10.1); CARBON DIOXIDE 37.6 mmol/L (21.0-32.0); CREATININE - SERUM 1.1 mg/dL (0.6-1.3)
--- NOTE | 2016-05-14 06:55 | NUR ---
RECEIVED REPORT FROM LABORER TAN HOUSE NURSE, SALVADOR ZAVALA. PT IN BED, LETHARGIC, NAD NOTED, FAMILY AT BEDSIDE, CALL LIGHT IN REACH, NAD NOTED, WILL CONTINUE TO MONITOR.
--- NOTE | 2016-05-14 08:13 | NUR ---
ADMINISTERED 1MG OF MORPHINE AND LOVENOX. PT REFUSED TO TAKE PO MEDS. FAMILY AT BEDSIDE, NAD NOTED, CALL LIGHT IN REACH, WILL CONTINUE TO MONITOR.
[2016-05-14 08:25] VITALS: BP 124/53
[2016-05-14 12:49] VITALS: BP 131/52
--- NOTE | 2016-05-14 13:18 | NUR ---
ADMINISTERED 1MG OF MORPHINE FOR PAIN LEVEL OF 7/10. PT IN BED, NAD NOTED, CALL LIGHT IN REACH, FAMILY AT BEDSIDE, NAD NOTED, WILL CONTINUE TO MONITOR.
--- NOTE | 2016-05-14 15:48 | NUR ---
iv ACCESS-#22 INTROCAN FOR SALINE FLUSH. MILI CHAVEZ RN
--- NOTE | 2016-05-14 16:40 | NUR ---
Patient Name: LENA MOJICA Encounter No: [id number] : 1930 Primary Insurance: MEDICARE A & B Anticipated DC Date: 05-12-2016 Planned Disposition: INPATIENT HOSPICE External Planned Provider: [facility] DCP follow-up note: CM RECEIVED HOSPICE EVALUATION ORDER AFTER SPEAKING TO DR. WILEY WHO INFORMED CM THAT HE HAS SPOKEN TO PT'S SON IN THE ROOM AND FAMILY HAS ASKED FOR HOSPICE CARE FOR PT. CM SPOKE TO PT'S SON IN ROOM WHO REPORTS THAT ALL 4 CHILDREN, TO INCLUDE HIM, AGREE FOR HOSPICE CARE, SELECTED [facility] AND WANT PT TO REMAIN AT [facility] IF POSSIBLE. CM CALLED [facility], , SPOKE TO VANESSA AND REQUESTED INPATIENT HOSPICE EVALUATION THIS AFTERNOON. CM FAXED REFERRAL TO [facility] AT [phone]. CM WAITING EVALUATION AND ADMISSION DETERMINATION FROM [facility] TODAY. Duke Hernadez, CASE MANAGEMENT
[2016-05-14 18:09] VITALS: BP 150/60
[2016-05-14 19:45] VITALS: BP 127/47
--- NOTE | 2016-05-14 21:28 | NUR ---
PT DISCHARGED FROM INPATIENT AND READMINTTED TO INPATIENT HOSPICE CARE TO [facility] AT THIS TIME FAMILY IN ROOM AND ORDERS SENT TO PHARMACY MORPHINE MERCHANDISE TEAM MANAGER SET UP AND ADMIN ORDERED WILL MONITOR
--- NOTE | 2016-05-16 11:11 | EC ---
PATIENT:LENA MOJICA DATE OF SERVICE: 05/09/16 SEX: F MEDICAL RECORD: [id number] DATE OF : [birth year] LOCATION:D.M2 D.210 AGE OF PATIENT: 86 ADMISSION DATE: 05/09/16 REFERRING PHYSICIAN: INTERPRETING PHYSICIAN: LI PATRICK MD ECHOCARDIOGRAM REPORT ECHO CHARGES 4 ECHO COMPLETE CLINICAL DIAGNOSIS: SC ECHOCARDIOGRAPHIC MEASUREMENTS (adult normal given) AC root (d.<3.7cm) 3.7 LV Septum d (<1.2 cm> 1.3 Valve Excursion 1.3 LV Septum (systole) 1.5 Left Atria (s.<4.0cm> 3.4 LVPW d(<1.2cm) 1.1 RV (d.<2.3cm) 4.2 LVPW (sytole) 1.2 LV diastole(<5.6CM) 2.3 MV E-F(>70mm/sec) LV systole 1.8 LVOT Diameter 1.2 MV exc.(>10mm) Est.ejection fraction (50-75%) Pericardial Effusion N DOPPLER: LVIT A 126 E 72.0 LA RVSP 57 LVOT 122 AOP1/2T Asc. Ao 190 RVOT RA PA AV Gradient Peak 14.52 AV Mean 7.0 AV Area 1.0 MV Gradient Peak 7.71 MV Mean 2.01 MV Area COMMENTS: University Extension Specialist: Hubert PARHAM Billet Checker:1 Dr. Patrick TAPE# PACS DATE OF SERVICE: 05/11/2016 Echocardiogram FINDINGS: 1. Left ventricular chamber size is within normal limits. Left ventricular systolic function is normal. Overall ejection fraction estimated at 55%. 2. Left atrium is within normal limits at 3.4 cm. Right atrium and right ventricle chamber sizes are mildly dilated. 3. Valvular structures: Aortic valve demonstrates mild calcific aortic ECHOCARDIOGRAM REPORT [id number] [place] stenosis. Valve area calculates to 1.0 cm-squared and has gradient of 15 mm across the valve. The remaining valvular structures have normal structure and motion. 4. Doppler interrogation elsewise reveals mild to moderate tricuspid regurgitation, no other valvular insufficiency or stenosis. Pulmonary systolic pressure is elevated estimated at 57 mmHg. 5. No evidence of pericardial effusion or left ventricular thrombus. TRANSINT:[id number] Voice Confirmation ID: [id number] DOCUMENT ID: [id number] LI PATRICK MD at 1111 CC: [id number] DICTATION DATE: 05/11/16 1202 BEHAVIORAL SCIENCE CHAIR: 05/11/16 1215 DIS IN 05/15/16 [id number] [place] [address]
--- NOTE | 2016-05-16 11:11 | DS ---
PATIENT:LENA STEVENSON :34 MEDICAL RECORD: [id number] DISCHARGE SUMMARY ADMISSION DATE: 05/09/16 DISCHARGE DATE: 05/15/16 DISCHARGE DIAGNOSES: 1. Non-Q-wave myocardial infarction. 2. Coronary artery disease. 3. Chronic obstructive pulmonary disease. 4. Smoking history. HOSPITAL COURSE: Mrs. Stevenson presents with chest pain, found to have a small non-Q-wave myocardial infarction. Echocardiogram was with a normal ejection fraction. She had one other episode of chest pain since admission; however, with medical management of Pravachol, Coreg and Imdur, she had no further chest pain. She was discharged home and will follow up with [facility] in 1 month. TRANSINT:[id number] Voice Confirmation ID: [id number] DOCUMENT ID: [id number] LI MORALEZ MD at 1111 CC: [id number] DICTATION DATE: 05/11/16 1315 RN INTERNSHIP: 05/11/16 1322 DIS IN 05/15/[address] [address]
--- NOTE | 2016-05-16 11:11 | CN ---
PATIENT NAME:LENA STEVENSON MEDICAL RECORD: [id number] : 34 LOCATION:D. D.2106 ADMIT DATE: 05/09/16 ACCOUNT: [id number] CONSULTING PHYSICIAN: LI MORALEZ MD REFERRING PHYSICIAN: ARNOLDO LYNN MD DATE OF CONSULTATION: 05/09/2016 Cardiology Consultation DIAGNOSES: 1. Non-Q-wave myocardial infarction. 2. Coronary artery disease. 3. Chronic obstructive pulmonary disease. 4. Shortness of breath, dyspnea on exertion. HISTORY OF PRESENT ILLNESS: Mrs. Stevenson presents after a fall. She was short of breath. Her family brought her in. She was found to have elevated troponin compatible with a non-Q-wave myocardial infarction. A 12-lead ECG is sinus rhythm with no acute ST-T abnormalities. She has no chest pain and no chest discomfort, only the shortness of breath. She does have a history of extensive COPD. She has not a got cardiac history. PHYSICAL EXAMINATION: GENERAL APPEARANCE: Well-nourished, well-developed, appears stated age. Level of distress, comfortable. PSYCHIATRIC: Mental status, alert, normal affect. Orientation, oriented to time, place and person. EYES: Lids and conjunctiva, noninjected. No discharge, no pallor. ENT: Lips, teeth, gums, normal dentition. Oropharynx, no cyanosis, no pallor. NECK: Carotid arteries, bilateral normal upstroke, no bruits, no thrills. JUGULAR VEINS: No jugular venous pressure or distention. CERVICAL LYMPH NODES: Nontender, nonenlarged. THYROID: Not enlarged. Nontender. No nodules. LUNGS: Respiratory effort, unlabored. CHEST: Normal curvature. No thoracic deformity. No chest wall tenderness. Percussion, resonant. Auscultation, clear. No wheezes, no rales, no rhonchi. CARDIOVASCULAR: Precordial exam, nondisplaced. No heaves or pericardial thrills. Rate and rhythm, regular. Heart sounds, normal S1, normal S2. No S3, no gallop, no rub. Systolic murmur, not heard. Diastolic murmur, not heard. EXTREMITIES: No cyanosis, no edema. Peripheral pulses, full and equal in all extremities, except as noted. No bruits appreciated. ABDOMEN: Soft, nondistended. Normal aorta. No bruit. Nontender. No masses. Liver, nontender, no hepatomegaly. Spleen, nontender, no splenomegaly. MUSCULOSKELETAL: No joint tenderness. No joint swelling. No erythema. NEUROLOGICAL: Normal gait, normal strength, normal tone. SKIN: Warm and dry. REVIEW OF SYSTEMS: The patient reports easy bruising but reports no swollen glands. The patient reports no fever, no night sweats, no significant weight gain, no significant weight loss. No significant exercise tolerance. The patient reports no dry eyes, no irritation, no vision change. Patient reports no difficulty hearing and no ear pain. Patient reports no frequent nose bleeds or nose and sinus problems. Patient reports on arm pain on exertion. No shortness of breath while lying down. No history of heart murmur. Patient reports no cough, no wheezing or coughing up blood. Patient reports no CONSULT REPORT [id number] LENA STEVENSON abdominal pain, no vomiting. Normal appetite. No diarrhea and not vomiting blood. No nausea and no constipation. Patient reports no incontinence. No difficulty urinating. No hematuria. No increased frequency. Patient reports no muscle aches. No weakness, no arthralgias, no back pain. No swelling of the extremities. Patient reports no abnormal mole, no jaundice, no rashes. Reports no loss of consciousness. No weakness and no numbness. No seizures, dizziness, or headaches. The patient reports no depression, no sleep disturbance, feeling safe in a relationship and no alcohol abuse. Patient reports on fatigue. Reports no runny nose or sinus pressure. No itching, no hives, and no frequent sneezing. OVERALL IMPRESSION: Non-Q-wave myocardial infarction, most likely she does have significant underlying heart disease, but her chronic obstructive pulmonary disease is quite advanced. She is quite frail, would not suggest cardiac catheterization at this time only medical management. We will start aspirin, Pravachol, and Coreg. We will get an echocardiogram in the a.m. for evaluation of ejection fraction with this non-Q-wave myocardial infarction. TRANSINT:[id number] Voice Confirmation ID: [id number] DOCUMENT ID: [id number] LI MORALEZ MD at 1111 CC: [id number] DICTATION DATE: 05/09/16 1605 PEOPLESOFT FUNCTIONAL ANALYST: 05/09/16 1714 DIS IN 05/15/16 [facility] [address] [place] [address]
[2016-05-17 18:07] LABS: AEROBE ID Final report (()); RESULT 1 Alcaligenes species (())
== END 2016-05-15 02:14 | disposition hospice, inpatient (51) | DRG 280 ==
LOC: D.ER 09:53 → D.M2 14:20
PROVIDERS: Emergency Medicine; Internal Medicine; ADMIT Family Medicine Adult Medicine
DX: I21.4 Non-ST elevation (NSTEMI) myocardial infarction (principal); I50.31 Acute diastolic (congestive) heart failure; J44.1 Chronic obstructive pulmonary disease with (acute) exacerbation; N17.9 Acute kidney failure, unspecified; E87.1 Hypo-osmolality and hyponatremia; I25.10 Atherosclerotic heart disease of native coronary artery without angina pectoris; E87.5 Hyperkalemia; E87.6 Hypokalemia

== ENCOUNTER 2016-05-15 02:15 | Inpatient (IN) | payer OTHER ==
[~2016-05-15] VITALS: Ht 162.6 cm; Wt 62.5 kg
[~2016-05-15 02:15] MED LIST: CLARITIN 10 MG10 MG PO; COMBIVENT RESPIM4 GM INH; FUROSEMIDE20 MG PO; PROVENTIL/2.5 MG/3 M INH
[2016-05-15 04:21] VITALS: BP 124/53; Ht 162.6 cm; Wt 62.5 kg
--- NOTE | 2016-05-15 06:58 | NUR ---
RECEIVED REPORT FROM GEOLOGICAL DRAFTER NURSE, SALVADOR ZAVALA. PT IN BED, NAD NOTED, FAMILY AT BEDSIDE, CALL LIGHT IN REACH, WILL CONTINUE TO MONITOR.
[2016-05-15 08:50] VITALS: BP 141/52
--- NOTE | 2016-05-15 12:25 | NUR ---
Nutrition Note: Pt admitted to inpatient hospice care. RD will continue to monitor pt per policy and will be available if needed.
--- NOTE | 2016-05-15 16:01 | NUR ---
HOSPICE NURSE AND I TURNED PT TO LEFT SIDE AND CHANGED DRESSING TO BOTTOM. FAMILY DENIES ANY NEEDS AT THIS TIME. CALL LIGHT IN REACH, HOSPICE NURSE AT BEDSIDE, NAD NOTED, WILL CONTINUE TO MONITOR.
[2016-05-15 20:50] VITALS: BP 128/49
--- NOTE | 2016-05-15 21:18 | NUR ---
RESTING IN BED WATCHING TV. ALERT. MORPHINE CAR OILER IN PLACE. FAMILY AT BEDSIDE
--- NOTE | 2016-05-16 04:59 | NUR ---
CALL LIGHT IN REACH, WILL CONTINUE WITH PLAN OF CARE.
--- NOTE | 2016-05-16 07:44 | NUR ---
received pt repot. no other needs at this time. will continue plan of care.
[2016-05-16 08:00] VITALS: BP 142/55
--- NOTE | 2016-05-16 11:08 | NUR ---
PT IS ALERT. ASSESSMENT DONE PER FLOWSHEET. NO CO PAIN AT THIS TIME. WILL CONTINUE TO MONITOR.
--- NOTE | 2016-05-16 13:20 | NUR ---
NO SS OF DISTRESS WILL CONTINUE TO MONITOR. NO OTHER NEEDS.
--- NOTE | 2016-05-16 19:45 | NUR ---
INIITAL ROUNDS COMPLETED. FAMILY STATES MORPHINE DRIP CONTROLLING PT'S PAIN. WILL CONTINUE TO MONITOR.
[2016-05-16 20:35] VITALS: BP 139/48
--- NOTE | 2016-05-16 23:06 | NUR ---
2MG MORPHINE BOLUS GIVEN AT 2144 HRS. REPSITINED INBED FOR COMFORT AT THAT TIME. PT CURRENTLY RESTING WITH EYES CLOSED. RESP EVEN AND REGULAR. SR UP X2, CALL LIGHT WITHIN REACH.
--- NOTE | 2016-05-17 00:36 | NUR ---
PT REPOSITIONED INBED FOR COMFORT. WILL CONTINUE TO MONITOR. GRANDDAUGHTER AT BEDSIDE.
--- NOTE | 2016-05-17 03:00 | NUR ---
INFIORMED BY CELL RELINER THAT FAMILY REFUSED TURNING OF PT AT 0230 HRS. WILL CONTINUE TO MONITOR.
[2016-05-17 04:20] VITALS: BP 145/93
--- NOTE | 2016-05-17 04:34 | NUR ---
REPOSITIONED IN BED FOR COMFORT. PT DENIES ANY DISCOMFORT AT THIS TIME. GRANDDAUGHTER AT BEDSIDE.
--- NOTE | 2016-05-17 06:35 | NUR ---
HOSPICE NURSE HERE. UPDATE GIVEN. 2MG MORPHINE BOLUS GIVEN FOR C/O BILAT LOWER LEG PAIN. REPOSITIONED INBED FOR COMFORT. GRANDDAUGHTER AT BEDSIDE.
--- NOTE | 2016-05-17 07:37 | NUR ---
0640-AM ROUNDING MADE. PATIENT IS DNR CODE STATUS, HOSPICE. FAMILY IS AT BEDSIDE. PATIENT IS ALERT, SIPPING WATER FROM STRAW WITH GRANDAUGHTER AT BEDSIDE. ON 4L PER NC, IV SEEN TO LEFT HAND WITH NS INFUSING AT 30 CC/HR. WATER MECHANIC WITH MS CONTINUOUS FLOW. MOONEY CATH PATENT WITH CONCENTRATED URINE. BILATEAL SAMUEL BOOT/WRAPS SEEN TO BILATEAL LOWER LEGS, THESE ARE BOTH UP ON PILLOWS. WILL ASSESS BOTTOM WHEN BATHING DONE. BED ALARM IS SET. WILL CONTINUE TO MONITOR.
[2016-05-17 07:47] VITALS: BP 150/51
[2016-05-17 11:50] VITALS: BP 127/45
--- NOTE | 2016-05-17 13:22 | NUR ---
PATIENT HAS HAD A COMPLETE BATH AND LINEN CHANGE BY MYSELF AND STEFANO PEREA. PATIENT'S ABDOMINAL AREA (HARD UPON ADMIT WITH CELLULITIS) NOW ARE SOFT TISSUE. MEPILEX REMOVED FROM BOTTOM AND STAGE 2 IS SEEN. MEPILEX IS REPLACED AND DATED TODAY. PATIENT WAS ABLE TO HELP ASSIST HERSELF IN ROLLING. PATIENT IS ON LEFT SIDE AT PRESENT TIME. WILL CONTINUE TO MONITOR AND TURN EVERY TWO HOURS FAMILY WILL ALLOW US TO. EARILER IN SHIFT, FAMILY DID NOT WANT US TO MOVE HER LEGS. STILL WITH REDDENED AREA BETWEEN LEGS (MUCH BETTER THAN UPON ADMIT) AND BUTT PASTE APPLIED PAST EBSSIE CARE.
[2016-05-17 15:54] VITALS: BP 140/53
--- NOTE | 2016-05-17 18:24 | NUR ---
PATIENT HAS BEEN TURNED EVERY TWO HOURS THIS AFTERNOON. PATIENT IS MORE ALERT THIS AFTERNOON. FAMILY AT BEDSIDE. WILL CONTINUE TO MONITOR.
--- NOTE | 2016-05-17 19:43 | NUR ---
PT TURNED TO RIGHT SIDE
[2016-05-17 20:10] VITALS: BP 113/43
--- NOTE | 2016-05-18 07:31 | NUR ---
AM ROUNDING- PT LAYING IN BED ON BACK WITH EYES CLOSED RESTING. FAMILY MEMBER AT BEDSIDE. PT IS A DNR. PT IS HERE WITH INPATIENT HOSPICE. IV SEEN TO LEFT HAND WITH NS RUNNING AT 30CC. MOONEY CATHETER SEEN. ROLLING MILL OPERATOR HELPER PUMP WITH MORPHINE SEEN WITH 0.5MG CONTINOUS, BOLUS DOSE Q3H OF 2MG IF PT NEEDS IT PER ORDER PER REPORT FROM MOTOR COACH OPERATOR NURSEROBERTO. UNNA WRAPS SEEN TO BILATERAL LEGS. MEPILEX TO BOTTOM AREA. NO MONITOR. ON 4L OF VIA NC. NO NEED AT CURRENT TIME. WILL CONTINUE TO MONITOR.
[2016-05-18 08:00] VITALS: BP 135/56
--- NOTE | 2016-05-18 13:04 | NUR ---
REMOVED MEPILEX TO COCCYX/BUTTOCK AREA. STAGE II PRESSURE ULCER SEEN WITH SLIGHT BLEEDING. CLEANED PTS COCCYX/BUTTOCK AREA AND REAPPLIED NEW MEPILEX. SIGNED AND DATED. TURNED PT ON RIGHT SIDE. WILL CONTINUE TO TURN PT Q2H.
--- NOTE | 2016-05-18 19:12 | NUR ---
MORPHINE SPACE SYSTEMS OPERATIONS CRAFTSMAN WAS RUNNING OUT AND NEAR END. SALLY WICK AND I REPLACED IT. REALIZED THAT SPACE SYSTEMS OPERATIONS CRAFTSMAN D/C THIS MORNING. PAGED DR. WILSON. AWAITING CALLBACK. 1913- DR. WILSON CALLED BACK. INFORMED HIM OF SPACE SYSTEMS OPERATIONS CRAFTSMAN BEING D/C. HE STATED TO KEEP IT GOING, HE DIDNT REALIZE HE D/C'D IT. WILL PASS THIS ON TO INFO ANALYST NURSE SHAMIKA.
--- NOTE | 2016-05-18 19:17 | NUR ---
PT LAYING IN BED ON BACK WITH EYES CLOSED RESTING. FAMILY MEMBER AT BEDSIDE. WILL CONTINUE TO MONITOR.
--- NOTE | 2016-05-18 19:30 | NUR ---
ASSESSMENT COMPLETE, NO S/S OF ACUTE DISTRESS NOTED AT THIS TIME. HOB UP SR UP X2, C/L IN REACH OF FAMILY MEMBER. ON HOSPICE, COMFORT CARE BEING GIVEN. MORPHINE INFUSING W/O DIFF VIA PUMP CONTINOUS TO LEFT HAND WITH NO R/S NOTED AT SITE ALONG WITH NS AT 30CC/HR VIA PUMP. MOONEY CATH INTACT AND PATENT WITH DARK COLORED URINE NOTED IN BAG, SAMUEL WRAPS TO BILAT LEGS, TO STAY ON FOR 6 MORE DAYS. CONTINUE TO MONITOR.
[2016-05-18 20:00] VITALS: BP 100/46
--- NOTE | 2016-05-18 23:24 | NUR ---
EYES CLOSED, RESP UNLAB WITH O2 @ 2L NC IN USE, NO S/S OF ACUTE DISTRESS NOTED. C/L IN REACH OF FAMILY MEMBER.
--- NOTE | 2016-05-19 13:58 | NUR ---
PATIENT AROUSES TO PAINFUL STIMILUS, TURNING AND REPOSITIONING. HAS BEEN TURNED Q2. SOME AMOUNT OF RECTAL BLEEDING NOTED. MOONEY CARE GIVEN. URINE IS DARK. ORAL CARE GIVEN. FAMILY AT BEDSIDE. WILL CONTINUE TO MONITOR
--- NOTE | 2016-05-19 15:19 | NUR ---
FAMILY REQUESTING ATIVAN FOR PATIENT. PATIENT RESTLESS. ATIVAN 1 MG GIVEN IV.
--- NOTE | 2016-05-19 16:31 | NUR ---
WOUND CARE: REMOVED UNNA BOOTS. PT TOLERATED WELL.
--- NOTE | 2016-05-19 17:30 | NUR ---
ON HOSPICE, COMFORT CARE BEING GIVEN. DOES AROUSE TO VERBAL STIMULI, IS NOT TALKING AT THIS TIME. HOB UP SR UP X2, C/L IN REACH. FAMILY MEMBER AT BEDSIDE FOR NIGHT. CONTINUE TO MONITOR.
[2016-05-19 21:43] VITALS: BP 130/58
--- NOTE | 2016-05-20 00:24 | NUR ---
QUIET IN BED, WITH NO CHANGES NOTED AT THIS TIME. C/L IN REACH OF FAMILY MEMBER.
[2016-05-20 07:52] VITALS: BP 138/60
--- NOTE | 2016-05-20 08:35 | NUR ---
ASSESSMENT DONE. PT SLEEPING. EYES CLOSED. RESP EVEN AND UNLABORED. APPEARS COMFORTABLE. FAMILY AT BEDSIDE. VEHICLE INSURANCE AGENT MORPHINE INFUSING TO LEFT HAND, NO S/S OF INFILTRATION. CALL LIGHT WITH IN REACH. WILL CONT. TO MONITOR.
--- NOTE | 2016-05-20 09:45 | NUR ---
PATIENT TURNED ON R SIDE. DOES OPEN EYES WHEN NAME CALLED. FAMILY AT BEDSIDE.
--- NOTE | 2016-05-20 09:45 | NUR ---
REPOSITIONED PT IN BED. PT OPENING EYES. NON-VERBAL AT THIS TIME. RE-ENFORCED IV WITH PAPER TAPE. FAMILY REPORTS PT IS PICKING AT THE SIDE. NO REDNESS NOTED. WILL CONT. TO MONITOR.
--- NOTE | 2016-05-20 11:06 | NUR ---
HOSPICE NURSE HERE. STATES PT IS RESTLESS, AND VERBALIZED THAT "YES" SHE IS HURTING. NURSE REQUESTED THAT 1MG MORPHINE BOLUS BE ADM PER ORDER. PT AROUSES TO VOICE. NODDED HEAD YES WHEN THIS NURSE ASKED IF PT WAS HURTING. 1MG MORPHINE BOLUS GIVE IV. HEART RATE 72. FAMILY AT BEDSIDE. WILL CONT. TO MONITOR.
--- NOTE | 2016-05-20 11:45 | NUR ---
PT RESTLESS. NURSE REPOSTIONED PT AND NOTIED PT WAS WET WITH URINE. IT APPEARS THE MOONEY CATH HAD LEAKED AT SOME POINT. MOONEY IS DRAINING INTO BEDSIDE DRAINAGE BAG CURRENTLY. NURSE AND PHYSICAL THERAPY ASSISTANT INSTRUCTOR CHANGED LINENS AND GAVE PT A BED BATH. PT TOLERATED WELL.
--- NOTE | 2016-05-20 11:45 | NUR ---
MEPILEX DRESSING CHANGED TO PT COCCYX D/T DRESSING BEING SOILED. COCCYX WITH MOD AMT OF REDNESS NOTED.
--- NOTE | 2016-05-20 13:21 | NUR ---
PT SLEEPING. APPEARS COMFORTABLE. RESP EVEN AND UNLABORED. FAMILY IN ROOM. MORPHINE STREETCAR REPAIRER HELPER INFUSING TO LEFT HAND. IV WITH OUT S/S OF INFILTRATION. CALL LIGHT WITH IN REACH. WILL CONT. TO MONITOR.
--- NOTE | 2016-05-20 16:32 | NUR ---
PT'S DAUGHTER REPORTS PT PULLING AT COVERS AND GOWN. THIS NURSE ASKED PT IF SHE WAS HURTING. PT RESPONDED WITH YES. NURSE ASKED IF PT WAS HURTING EVERYWHERE. PT RESPONDED WITH " YES, I LIKE YOU." 1MG MORPHINE BOLUS GIVEN. WILL CONT TO MONITOR. REPOSITONED PT. PT DRY, AND MOONEY CATH IS PATENT TO BSD BAG.
--- NOTE | 2016-05-20 18:26 | NUR ---
PT SLEEPING. APPEARS COMFORTABLE. FAMILY IN ROOM. NO DISTRESS NOTED.
--- NOTE | 2016-05-20 19:30 | NUR ---
ASSESSMENT COMPLETE, ON HOSPICE, COMFORT MEASURES GIVEN, MORPHINE ELECTRONIC DRAFTER AT BEDSIDE FOR PAIN CONTROL. ON CONTINOUS GTT PER ORDERS. RESP UNLAB WITH O2 @ 2L NC IN PLACE. NS INFUSING W/O DIFF VIA PUMP AT 30CC/HR TO LEFT HAND IV SITE WITH NO R/S NOTED. MOONEY CATH INTACT AND PATENT WITH DARK COLORED URINE NOTED IN BAG. MERIPLEX DRSG TO COCCYX CDI. UNNA WRAPS TO BILAT LOWER LEGS NOTED. FAMILY AT BEDSIDE FOR NIGHT. WILL OPEN EYES TO PAINFUL STIMULI AT THIS TIME. NON VERBAL.HOB UP SR UP X2, C/L IN REACH. CONTINUE TO MONITOR.
[2016-05-20 21:06] VITALS: BP 114/49
[2016-05-21 00:43] VITALS: BP 125/44
--- NOTE | 2016-05-21 02:17 | NUR ---
QUIET IN BED WITH NO S/S OF ACUTE DISTRESS NOTED. NO S/S OF ACUTE DISTRESS NOTED AT THIS TIME. HOB UP SR UP X2, C/L IN REACH. OF FAMILY MEMBER.
[2016-05-21 05:26] VITALS: BP 131/46
--- NOTE | 2016-05-21 07:59 | NUR ---
ASSESSMENT DONE. PT OPENING EYES TO VOICE STIMULI, BUT NON-VERBAL. APPEARS COMFORTABLE. MOONEY PATENT TO BSD WITH DARK CONCENTRATED URINE. REPOSITONED PT AND ELEVATED EXTREMITIES ON PILLOWS. IV PATENT TO LEFT HAND WITH MORPHINE ASPHALT TAMPING MACHINE OPERATOR CONTINUOUS AT 0.5MG/HR. IV WITH NO S/S OF INFILTRATION. FAMILY AT BED SIDE. WILL CONT. TO MONITOR.
[2016-05-21 08:00] VITALS: BP 137/51
--- NOTE | 2016-05-21 10:20 | NUR ---
RESP UL ON . IV PATENT. VISITOR AT BS. WILL MONITOR NEEDS.
--- NOTE | 2016-05-21 11:53 | NUR ---
PT RESTLESS. PULLING AT GOWN AND BLANKETS. O2 SAT 95% ON 5L NC. HR-95. REST 20. REPOSTIONED PT. MOONEY IS NOT LEAKING, BUT URINE OUTPUT IS LOW. ATIVAN 1MG GIVEN IV. WILL CONT. TO MONITOR. FAMILY AT BEDSIDE.
--- NOTE | 2016-05-21 12:49 | NUR ---
PT SLEEPING. APPEARS COMFORTABLE. FAMILY AT BEDSIDE. WILL CONT. TO MONITOR.
--- NOTE | 2016-05-21 18:06 | NUR ---
PT RESTING. APPEARS COMFORTABLE. FAMILY AT BEDSIDE. REPOSITONED PT. MOONEY PATENT, ONLY 25ML OF URINE OUTPUT.
--- NOTE | 2016-05-21 19:42 | NUR ---
ASSESSMENT COMPLETE, PT UNRESPONSIVE, RESPERATIONS SHALLOW, 02 AT 5 LITER VIA NC. TO LEFT HAND WITH NS INFUSING AT 30 CC/HR AND MORPHINE CRANE MANAGER IN USE FOR PAIN CONTROL. MOONEY DRAINING TO GRAVITY, FAMILY AT BED SIDE, BED LOW, CL IN REACH.
[2016-05-21 20:02] VITALS: BP 139/65
--- NOTE | 2016-05-21 20:47 | NUR ---
RIDING SILKS CUSTODIAN AT BED SIDE, BATH AND LINEN CHANGE COMPLETE. MEPILEX DRSG TO COCCYX CHANGED. REPOSITIONED IN BED FOR COMFORT.
--- NOTE | 2016-05-22 04:19 | NUR ---
VP ANCILLARY AT BEDSIDE TO OBTAIN VITALS, CALL LIGHT IN REACH. WILL CONTINUE WITH PLAN OF CARE.
--- NOTE | 2016-05-22 07:15 | NUR ---
RECIEVED REPORT O N PATIENT, PATIENT IS ON HOSPICE. FAMILY IS AT BEDSIDE. PATIENT IS NON RESPONSIVE TO VERBAL STIMULI OR TOUCH. CHEST RISES AND FALLS EQUALLY. NAD NOTED. PATIENT HAS A L HAND IV WITH NS INFUSING AT 30ML/HR AND A MORPHINE CONTINUOUS WASHER OPERATOR INFUSING WITH 0.5MG CONTINOUS. PATIENT FAMILY DENIES ANY NEEDS OR COMPLAINTS AT THIS TIME. WILL CONT TO MONITOR PATIENT. BED LOW AND LOCKED. CALL LIGHT IN REACH. CPOC
[2016-05-22 07:59] VITALS: BP 91/48
--- NOTE | 2016-05-22 08:08 | NUR ---
SPOKE WITH [facility] N[facility]SE REGAURDING PATIENT O2 SAT IS 88%, ON 6L/MIN VIA NC. PATIENT IS NOT IN DISTRESS OR STUGGLING AT THIS TIME, HOSPICE NURSE ORDERED TO KEEP PATIENT ON 6L/MIN UNLESS PATIENT BECAME IN DISTRESS. WILL CONT TO MONITOR PATIENT. CHEST RISES AND FALLS EQUALLY. RR 16. WILL CONT TO MONITOR
--- NOTE | 2016-05-22 09:00 | NUR ---
ASSESSMENT DONE. PATIENT STILL NON RESPONSIVE TO VERBAL STIMULI. FAMILY IS AT BEDSIDE AT THIS TIME. WILL CONT TO MONITOR PATIENT. NAD NOTED. BED LOW AND LOCKED. CPOC
--- NOTE | 2016-05-22 11:00 | NUR ---
patient resting comfortablly no signs of distress noted. family at bedside. will cont to monitor patient. family denies needs at this time. cpoc
--- NOTE | 2016-05-22 13:50 | NUR ---
HOSPICE NURSE AT BEDSIDE, DAMARIS, ORDERED TO INCREASE PATIENT MORPHINE ELECTROFORMER TO [address]MG [address] WILSON. WILL INCREASE. CPOC
--- NOTE | 2016-05-22 15:15 | NUR ---
PATIENT MOVED TO ROOM 2101 FOR A BIGGER ROOM. NAD NOTED AT THIS TIME. FAMILY AT BEDSIDE. WILL CONT TO MONITOR PATIENT. CPOC
--- NOTE | 2016-05-22 16:30 | NUR ---
FAMILY CALLED ME TO PATIENT ROOM STATED "SHE IS NOT BREATHING" LISTENED FOR BREATH SOUNDS IN ALL LOBES, NONE NOTED. LISTENED FOR HEART SOUNDS, NONE NOTED. VERFIED BY FRANCHISE SALES REPRESENTATIVE CARMEN CALDWELL RN. WILL NOTIFY HOSPICE. CPOC
--- NOTE | 2016-05-22 16:35 | NUR ---
[facility] NOTIFIED AND SENDING NURSE THIS WAY.
--- NOTE | 2016-05-22 17:00 | NUR ---
DR WILSON AT BEDSIDE TO PRONOUNCE PATIENT. CPOC
--- NOTE | 2016-05-22 17:30 | NUR ---
HOSPICE NURSE AT BEDSIDE WITH FAMILY. CPOC
--- NOTE | 2016-05-22 18:58 | NUR ---
[facility] here for patient. patient dc.
== END 2016-05-22 19:10 | DRG 951 ==
LOC: D.M2 02:15
PROVIDERS: ADMIT Legal Medicine
DX: Z51.5 Encounter for palliative care (principal)